=== PATIENT | female | born 1950 | race Caucasian/White ===

== ENCOUNTER 2024-05-05 06:18 | Emergency (ER) | payer OTHER ==
[~2024-05-05] VITALS: Ht 147.3 cm; Wt 75.5 kg
[2024-05-05 06:25] VITALS: BP 137/84; PULSE 66; RESP 14; O2SAT 97
== END 2024-05-05 07:35 | disposition left against medical advice (07) ==
LOC: EDBD 06:18 → ER 06:18
DX: R10.13 Epigastric pain (principal); Z53.21 Procedure and treatment not carried out due to patient leaving prior to being seen by health care provider
CPT/HCPCS: 93005